=== PATIENT | female | born 1945 ===

== ENCOUNTER 2017-11-22 06:23 | Inpatient (IN) | payer OTHER ==
[2017-11-19 09:02] VITALS: BMI 35.2
[2017-11-22 06:59] LABS: BASO % 0.7 % (0.0-2.0); EOS # 0.1 K/uL (0.0-0.7); EOS % 3.7 % (0.0-4.0); HEMOGLOBIN 13.8 g/dL (12.0-16.0); LYMPH # 1.1 K/uL (1.0-4.3); LYMPH % 30.8 % (20.0-40.0); MEAN CELL VOLUME 92.7 fl (81.0-99.0); MEAN CORPUSCULAR HEMOGLOBIN 31.2 pg (27.0-31.0); MEAN CORPUSCULAR HGB CONC 33.7 g/dL (33.0-37.0); MEAN PLATELET VOLUME 7.3 fl (7.2-11.7); MONO # 0.5 K/uL (0.0-0.8); MONO % 13.8 % (0.0-10.0); NEUT # 1.9 K/uL (1.8-7.0); NRBC % 0.1 % (0.0-0.0); RBC 4.4 Mil/uL (3.80-5.20); RED CELL DISTRIBUTION WIDTH 14.3 % (11.5-14.5); WHITE BLOOD COUNT 3.7 K/uL (4.8-10.8)
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
[2017-11-22] MEDS ORDERED: Midazolam 2 MG/2 ML VIAL ONE (08:41)
[2017-11-22] MEDS ORDERED: Propofol 10 mg/ml Inj (20 ML) ONE (08:41)
[2017-11-22] MEDS ORDERED: Rocuronium 10 mg/ml (5 ml) ONE ×2 (08:41→11:51)
[2017-11-22] MEDS ORDERED: Succinylcholine 200 mg/10 ml Inj IV ONE (08:41)
[2017-11-22] MEDS ORDERED: Lidocaine 1% 5ml Abboject ONE (08:42)
[2017-11-22] MEDS ORDERED: Neostigmine 1:1000 (1 mg/ml) Inj ONE (08:42)
[2017-11-22] MEDS ORDERED: Lidocaine 4% (Laryng-O-Jet) Kit MM ONE (08:42)
[2017-11-22] MEDS ORDERED: Sevoflurane - Inhalation Anesthetic Liq (250 ml) ONE (08:48)
[2017-11-22] MEDS ORDERED: Bupivacaine HCl 0.5% PF (30 ml) Inj ONE (09:03)
[2017-11-22] MEDS ORDERED: Bupivacaine HCl 0.25% PF (30 ml) Inj ONE (09:03)
[2017-11-22 09:20] LABS: SQUAMOUS EPITHIAL < 1 /hpf (0-5); URINE BILIRUBIN NEGATIVE (NEGATIVE); URINE BLOOD NEGATIVE (NEGATIVE); URINE CLARITY CLEAR (Clear); URINE COLOR YELLOW (YELLOW); URINE GLUCOSE (UA) NEG (Normal); URINE LEUKOCYTE ESTERASE TRACE Leu/uL (Negative); URINE PROTEIN NEGATIVE (NEGATIVE); URINE UROBILINOGEN 0.2-1.0 mg/dL (0.2-1.0)
[2017-11-22] MEDS ORDERED: Fluticasone-Salmeterol 250-50mcg Diskus IH PRN ×2 (09:48→22:15)
[2017-11-22] MEDS ORDERED: Lactated Ringer's 1,000 ML IV ONE ×2 (11:10→13:54)
[2017-11-22] MEDS ORDERED: Bacitracin OINT 15GM TOP ONE (14:33)
--- NOTE | 2017-11-22 15:23 | PCM.SURG1 ---
Surgeon's Initial Post Op Note - Surgeon's Notes Surgeon: [facility] Registered Nurse: Erasto Galan PA-C/ FELI Patrick Type of Anesthesia: General Endo, Block Regional Anesthesia Administered By: DR Dang Pre-Operative Diagnosis: tricomparmental O/A R knee (primary) Operative Findings: tricompartmental O/A R knee. anterior and posterior synovitis. posterior capsular contracture. 'lateral patella contracture Post-Operative Diagnosis: as above Operation Performed: R TKR. posterior capsular release. lateral patella retinacular releasae. anterior and posterior synovectomy. computer navigation Specimen/Specimens Removed: synoviuim/cartilage bone Estimated Blood Loss: EBL {In ML}: 85 Blood Products Given: N/A Drains Used: No Drains, Hemovac Post-Op Condition: Fair Date of Surgery/Procedure: 11/22/17 Time of Surgery/Procedure: 12:30 (time in room/anesthesia indcution time 11:10)
--- NOTE | 2017-11-22 16:47 | RAD ---
Date of service: 11/22/2017 PROCEDURE: Right Knee Radiographs. HISTORY: s/p R TKA COMPARISON: None. FINDINGS: BONES: Satisfactory position alignment of components right TKA. JOINTS: Normal. No osteoarthritis. JOINT EFFUSION: None. OTHER FINDINGS: Surgical drains identified. IMPRESSION: Satisfactory postoperative status.
[2017-11-22] MEDS: Lactated Ringer's 1,000 ML IV SCH ×2 (17:34→18:16)
[2017-11-22] MEDS: Dextrose 5%/0.45% NS 1,000 ML IV SCH (17:47)
[2017-11-22] MEDS: Albuterol HFA 90 mcg/actuation (8 g) INH SCH (18:13)
[2017-11-22] MEDS: Omega-3-Acid Ethyl Esters 1 GM Cap PO SCH (18:14)
[2017-11-22] MEDS: Calcium-Vit D 500 mg-200 Units Tab UD PO SCH (18:14)
[2017-11-22] MEDS: Lubricant Eye Drops UD OU SCH (18:16)
[2017-11-22] MEDS: ceFAZolin 2 GM in Sodium Chloride 0.9% 100 ML IVPB SCH (18:16)
[2017-11-22] MEDS ORDERED: Benzocaine/Menthol (Cepacol) Lozenge PO PRN (20:30)
[2017-11-23] MEDS: ceFAZolin 2 GM in Sodium Chloride 0.9% 100 ML IVPB SCH (02:59)
[2017-11-23] MEDS: Lactated Ringer's 1,000 ML IV SCH ×2 (02:59→21:30)
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
[2017-11-23 06:54] LABS: HEMOGLOBIN 11.7 g/dL (12.0-16.0); MEAN CELL VOLUME 92.9 fl (81.0-99.0); MEAN CORPUSCULAR HEMOGLOBIN 31.7 pg (27.0-31.0); MEAN CORPUSCULAR HGB CONC 34.1 g/dL (33.0-37.0); RBC 3.69 Mil/uL (3.80-5.20); RED CELL DISTRIBUTION WIDTH 14.6 % (11.5-14.5); WHITE BLOOD COUNT 6.7 K/uL (4.8-10.8)
[2017-11-23 06:58] LABS: BLOOD UREA NITROGEN 17 mg/dl (7-17); CALCIUM 8.4 mg/dL (8.4-10.2); GFR NON-AFRICAN AMERICAN > 60
[2017-11-23] MEDS: Dextrose 5%/0.45% NS 1,000 ML IV SCH (07:13)
--- NOTE | 2017-11-23 08:46 | OP ---
PROCEDURE DATE: 11/22/2017 PREOPERATIVE DIAGNOSIS: Tricompartmental osteoarthritis of the right knee. POSTOPERATIVE DIAGNOSIS: Tricompartmental osteoarthritis of the right knee. PROCEDURES: 1. Right total knee replacement arthroplasty. 2. Posterior capsular release. 3. Anterior and posterior synovectomy. 4. Lateral patellar retinacular release. 5. Computer navigation. SURGEON: Sean Sanders MD OXYGEN THERAPIST: Frankie Galan PA-C SECOND JUICE BAR TEAM MEMBER: Sandrita Garces, Certified Registered Nursing Slot Supervisor. ANESTHESIA: General endotracheal anesthesia; regional anesthesia. ANESTHESIOLOGIST: Gasper Dang MD COMPLICATIONS: No complications. DRAINS: One Hemovac drain. COMPONENTS: #2 Medacta tibial component, #3 femoral component, 11 mm polyethylene, 32 mm patella. OPERATIVE INDICATIONS: Jocelyn King is a woman, well known to my practice, who presents with severe pain and restricted range of motion of the right knee. The patient has marked discomfort, pain on restricted range of motion. The patient has failed conservative management consisting of intraarticular injection, activity modification, and therapy. Pros, cons, risks, and benefits of the surgical approach were discussed; specifically knee replacement arthroplasty. The possibility of mechanical failure, infection, thromboembolic disease, possibility of secondary or tertiary surgery is discussed. The patient no longer withstand the discomfort and wishes the surgery to be accomplished. OPERATIVE PROCEDURE: After having obtained informed consent in the above fashion, after having identified the side, site, and procedure, and a critical pause/time-out, after the satisfactory induction of general and regional anesthetic, the patient identified as Jocelyn Ayala, in the supine position with all bony prominences well padded. The right lower extremity was prepped and free draped in usual fashion for lower extremity surgery. The tourniquet have been applied, but is not yet inflated. After sterilely prepping and draping, after having identified side, site, and procedure, and a critical pause/time-out, after the satisfactory induction of the anesthetic, the patient identified as Jocelyn King in the supine position with all bony prominences well padded. The right lower extremity was prepped and free draped in usual fashion for extremity surgery. The tourniquet have been applied, but is not yet inflated. After exsanguinating the limb, using a 6-inch Esmarch bandage, the tourniquet, which have been applied, was inflated to 350 mmHg. A 6-inch straight midline approach was made to the knee. The skin incision was carried down through the skin and subcutaneous tissue. Medial arthrotomy was accomplished. Patella was everted. The knee was flexed. Dissection was carried around posteromedially to the direct head of the semimembranosus tendon. A portion of the patellar ligament was elevated. Anterior and posterior cruciate ligaments were excised. Medial and lateral meniscectomies were accomplished. This having been accomplished, the initial osteotomy was accomplished on the tibial side. Computer navigation was employed at this point in time. An anterior synovectomy was accomplished to define the anterior aspect of the femur. This having been accomplished, the tibia was dislocated anteriorly and initial osteotomy was accomplished on the tibial side. Computer navigation commences. The anterior tibial strut for the KneeAlign devices was applied and this having been accomplished, the offset was registered. The accelerometer and sensor were placed. The offset is registered. Medial and lateral malleoli are registered, and varus-valgus cut is set to 0 degrees with 3 degrees of posterior slope. The osteotomy was accomplished 10 mm below the more intact side. This having been accomplished, the tibial osteotomy was accomplished. A portion of the iliotibial band insertion into lateral aspect of the tibial plateau was released. The tibia was prepared. Guidance rotation of the lateral aspect of the tibial condyle, mid malleolar axis, medial third of the tibial tuberosity. This having been accomplished, the patella was everted. Partial synovectomy was accomplished. Osteophytes were debrided and freehand patella osteotomy was accomplished after measuring the patella to 28 mm. At this point in time, attention was now turned to the femur. Notch osteophytes and border osteophytes were debrided. The guide pin was placed above the intercondylar notch. The distal femoral cutting guide was applied and affixed. The computer navigation was again accomplished with the accelerometer and sensor placed. The hip center was found. The cut was set to 0 degrees of varus-valgus on the mechanical axis and 0.5 degrees of flexion. This having been accomplished, the distal cut having been accomplished, the anterior-posterior sizing was then accomplished for a #3 femoral component. This supplied the distal aspect of the femur. Anterior and posterior osteotomies were accomplished as well as chamfer cuts. There was found to be posterior capsular contracture, the posterior capsule was released. Attention was now turned to the lateral patellar retinaculum. The lateral patellar retinaculum was released. The patella had been sized to a 32 mm and reamed appropriately. This having been accomplished, the reaming mill was fixed to the distal aspect of the femur. Reaming was accomplished. The wound was thoroughly irrigated. The #3 cemented femoral component was applied, #2 cemented tibial tray, 11 mm polyethylene, 32 mm patella posterior capsule having been released. Lateral patella having been released, anterior and posterior synovectomies having been accomplished, cementation having been accomplished, the tourniquet is deflated. Hemostasis was controlled using the Aquamantys. Closures in layers with interrupted Arthrex FiberWire and #1 Vicryl followed by 0 Vicryl, 2-0 Vicryl, and kassy for skin over an 8-inch suction Hemovac drain. Christ Duff compression dressing was applied. The patient was stable in recovery, satisfactory postoperative x-rays. The operation could not have been completed without the assistantship of Frankie Galan PA-C, and Sandrita Garces, Sinan Registered Nursing Slot Supervisor. Sean Sanders MD
[2017-11-23] MEDS: Albuterol HFA 90 mcg/actuation (8 g) INH SCH ×2 (09:05→16:52)
--- NOTE | 2017-11-23 09:06 | CP.PCM.PN ---
Subjective - Date & Time of Evaluation Date of Evaluation: 11/23/17 Time of Evaluation: 07:45 - Subjective Subjective: Patient seen and examined at bedside comfortable. Pain is 2/10 due to continuing effects of nerve block. No acute events overnight. Denies CP/SOB/N/V /D/fever. Objective - Vital Signs/Intake and Output Vital Signs (last 24 hours): Temp Pulse Resp BP Pulse Ox 99.2 F 91 H 20 107/61 96 11/23/17 08:00 11/23/17 08:00 11/23/17 08:00 11/23/17 08:00 11/23/17 08:00 - Medications Medications: Current Medications Acetaminophen (Tylenol 325mg Tab) 650 mg PO Q6 [facility] Last Admin: 11/23/17 04:29 Dose: 650 mg Albuterol (Ventolin Hfa 90 Mcg/Actuation (8 G)) 2 puff INH BID [facility] Last Admin: 11/22/17 18:13 Dose: 2 puff Artificial Tears (Refresh Opth Soln) 0.3 ml OU DAILY [facility] Last Admin: 11/22/17 18:16 Dose: 0.3 ml Benzocaine/Menthol (Cepacol Sore Throat) 1 ernesto PO Q2 PRN PRN Reason: Sore Throat Last Admin: 11/22/17 20:41 Dose: 1 ernesto Calcium/Vitamin D (Oyster Shell Calcium/Vitamin D 500 Mg-200 Iu) 1 tab PO BID [facility] Last Admin: 11/22/17 18:14 Dose: 1 tab Docusate Sodium (Colace) 100 mg PO BID [facility] Last Admin: 11/22/17 17:41 Dose: 100 mg Enoxaparin Sodium (Lovenox) 40 mg SC Q24H [facility] PRN Reason: Protocol Escitalopram Oxalate (Lexapro) 10 mg PO DAILY [facility] Home Med (Cyclosporine [Restasis]) 1 % BOTHEYES BID [facility] Hydromorphone HCl (Dilaudid) 0.5 mg IVP Q4 PRN PRN Reason: Pain, severe (8-10) Dextrose/Sodium Chloride (Dextrose 5%/0.45% Ns 1000 Ml) 1,000 mls @ 100 mls/hr IV .Q10H [facility] Stop: 11/23/17 09:54 Last Admin: 11/22/17 17:47 Dose: Not Given Lactated Ringer's (Lactated Ringer's) 1,000 mls @ 100 mls/hr IV .Q10H [facility] Last Admin: 11/23/17 02:59 Dose: 100 mls/hr Levofloxacin (Levaquin) 500 mg PO DAILY [facility] PRN Reason: Protocol Losartan Potassium (Cozaar) 25 mg PO DAILY [facility] Memantine (Namenda) 10 mg PO BID [facility] Last Admin: 11/22/17 18:14 Dose: 10 mg Montelukast Sodium (Singulair) 10 mg PO HS [facility] Last Admin: 11/22/17 21:32 Dose: 10 mg Kjaes-1-Apmj Ethyl Esters (Lovaza) 2 gm PO BID [facility] Last Admin: 11/22/17 18:14 Dose: 2 gm Oxycodone HCl (Oxycodone Immediate Release Tab) 5 mg PO Q4H PRN PRN Reason: Pain, moderate (4-7) Fluticasone/Salmeterol (Advair Diskus 250/50) 1 puff IH DAILY PRN PRN Reason: Shortness of Breath - Labs Labs: 11/23/17 05:35 11/23/17 05:35 - Extremities Exam Additional comments: R knee: Knee imm in place, Dressings CDI Hemovac in place with mod bloody drainage, 90cc overnight sensation slighlty diminished but intact SP/DP/TN motor intact EHL/FHL/TA/G pedal pulses intact comps soft NT B/L Assessment and Plan (1) Osteoarthritis of right knee Assessment & Plan: POD #1 s/p R TKA doing well -Maintain and monitor hemovac, possible removal tomorrow -Knee imm and CPM as per order -PT/OT FWB -complete postop abx -DVT ppx -discharge planning for possible discharge tomorrow -above d/w Dr. Sanders in agreement Status: Acute
[2017-11-23] MEDS: CYCLOSPORINE BOTHEYES SCH ×2 (10:03→16:49)
[2017-11-23] MEDS: levoFLOXacin 500 MG TAB PO SCH (10:06)
[2017-11-23] MEDS: Calcium-Vit D 500 mg-200 Units Tab UD PO SCH ×2 (10:06→16:50)
[2017-11-23] MEDS: Omega-3-Acid Ethyl Esters 1 GM Cap PO SCH ×2 (10:07→16:49)
[2017-11-23] MEDS: Lubricant Eye Drops UD OU SCH (10:09)
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
--- NOTE | 2017-11-23 12:17 | PCM.ANESB3 ---
Femoral Nerve Block - Femoral Nerve Block Date of Procedure: 11/22/17 Anesthesiologist: Dr. Dang Pre-Procedure Diagnosis: S/P right total knee replacement Post-Procedure Diagnosis: S/P right total knee replacement Procedure Performed: Femoral Nerve Block Right - Procedure Femoral Nerve Block: The procedure was explained to the patient that it is for the post-operative pain management. Consent was obtained after a thorough discussion with the patient regarding the benefits and possible complications of local anesthetic block of the femoral nerve at the inguinal crease area. The patient was brought to the operating room and standard monitors were applied. Time-out was held with the circulating nurse to confirm the correct surgery and the appropriate block. After applying oxygen by nasal cannula and administering general anesthesia, patient was placed in supine position with fully extended lower extremities and the right groin exposed. The femoral artery was then carefully palpated. The ultrasound transducer was then applied to this area in the transverse plane and the femoral nerve was visualized lateral to the femoral artery and underneath the fascia iliaca. After thorough identification, the inguinal crease area was prepped with Chlraprep solution. At this point, a #21 gauge Stimuplex 4-inch needle was inserted immediately lateral to the femoral artery pulse at the inguinal crease and advanced perpendicularly. The needle was inserted to the ultrasound transducer in-plane towards the femoral nerve in a [id number] direction. Needle advancement was performed carefully under direct ultrasound visualization. Nerve stimulator was used and twitch of the quadriceps muscle was obtained at current of 0.3MA. After negative aspiration, 5cc of 0.375% bupivacaine was injected and this was followed with 15cc of 0.375% bupivacaine. Under ultrasound guidance the local anesthetics were observed spreading below fascia iliaca and around the femoral nerve. The needle was removed intact and sterile dressing was applied. The patient had stable vital signs, was conscious and in no apparent distress. The patient tolerated the femoral nerve block well with stable vital signs and was prepared for subsequent surgery.
--- NOTE | 2017-11-23 12:20 | PCM.ANESB2 ---
Popliteal Nerve Block - Popliteal Nerve Block Date of Procedure: 11/22/17 Anesthesiologist: Dr. Dang Pre-Procedure Diagnosis: S/P right knee replacement Post-Procedure Diagnosis: S/P right knee replacement Procedure Performed: Popliteal Nerve Block Right - Procedure Popliteal Nerve Block: This procedure was explained to the patient that it is for post-operative pain management. Consent was obtained after a thorough discussion with the patient regarding the benefits and possible complications of local anesthetic block of the sciatic nerve at the popliteal level. The patient was brought to the operating room and standard monitors are applied. Time-out was held with the circulating nurse to confirm the correct surgery and the appropriate block. After applying oxygen by mask and administering genral anesthesia, patient's operative leg was gently raised and supported and the groove in between the biceps femoris and vastus lateralis muscles was carefully palpated. The skin approximately 8cm above the popliteal crease was then marked. The ultrasound transducer was then applied to the posterior thigh approximately 8cm above the popliteal crease in the transverse plane and the sciatic nerve before its division was visualized lateral to the popliteal artery and in between the bicep femoris and semimembranosus/semitendinosus muscles. After identification, the lateral portion of the thigh was prepped with Chloraprep solution. At this point, a # 21 gauge Stimuplex insulated 4 inch needle was inserted into pre-marked area and advanced in a perpendicular direction. The needle was inserted above the ultrasound transducer in-plane towards the sciatic nerve in a [id number] direction. Needle advancement was performed carefully under direct ultrasound visualization. Nerve stimulator was used and dorsiflexion of the right foot was elicited at a current of 0.3 MA. After repeated negative aspiration, 5cc of0.375% bupivacaine was injected and this was flowed with 15cc of 0.375% bupivacaine. Under ultrasound guidance the local anesthetics were observed surrounding sciatic nerve . The needle was removed intact and sterile dressing was applied. The patient tolerated the popliteal nerve block well with stable vital signs and was subsequently prepared for the surgery.
[2017-11-23] MEDS ORDERED: Ergocalciferol 50,000 Intl Units Cap PO SCH (16:00)
[2017-11-23 19:19] LABS: INR 1.2; PROTHROMBIN TIME 13.3 Seconds (9.8-13.1)
[2017-11-23] MEDS: oxyCODONE 5 mg Immediate Release Tab PO PRN (20:31)
[2017-11-23] MEDS: Enoxaparin 40 mg Syringe SC SCH (20:49)
[2017-11-24 06:34] LABS: HEMOGLOBIN 10.7 g/dL (12.0-16.0); MEAN CELL VOLUME 93.9 fl (81.0-99.0); MEAN CORPUSCULAR HEMOGLOBIN 32.3 pg (27.0-31.0); MEAN CORPUSCULAR HGB CONC 34.4 g/dL (33.0-37.0); RBC 3.33 Mil/uL (3.80-5.20); RED CELL DISTRIBUTION WIDTH 14.2 % (11.5-14.5); WHITE BLOOD COUNT 7.8 K/uL (4.8-10.8)
[2017-11-24 06:41] LABS: ALT/SGPT 27 U/L (9-52); AST/SGOT 39 U/L (14-36); BLOOD UREA NITROGEN 12 mg/dl (7-17); GFR NON-AFRICAN AMERICAN > 60
--- NOTE | 2017-11-24 08:33 | CP.PCM.PN ---
Subjective - Date & Time of Evaluation Date of Evaluation: 11/24/17 Time of Evaluation: 08:00 - Subjective Subjective: COMPLAINS OF RIGHT KNEE SURGICAL PAIN Objective - Vital Signs/Intake and Output Vital Signs (last 24 hours): Temp Pulse Resp BP Pulse Ox 98.4 F 86 19 106/69 94 L 11/24/17 08:07 11/24/17 08:07 11/24/17 08:07 11/24/17 08:07 11/24/17 08:07 Intake and Output: 11/24/17 11/24/17 06:59 18:59 Output Total 135 Balance -135 - Medications Medications: Current Medications Acetaminophen (Tylenol 325mg Tab) 650 mg PO Q6 [facility] Last Admin: 11/24/17 03:53 Dose: 650 mg Albuterol (Ventolin Hfa 90 Mcg/Actuation (8 G)) 2 puff INH BID [facility] Last Admin: 11/23/17 16:52 Dose: 2 puff Artificial Tears (Refresh Opth Soln) 0.3 ml OU DAILY [facility] Last Admin: 11/23/17 10:09 Dose: 0.3 ml Benzocaine/Menthol (Cepacol Sore Throat) 1 ernesto PO Q2 PRN PRN Reason: Sore Throat Last Admin: 11/22/17 20:41 Dose: 1 ernesto Calcium/Vitamin D (Oyster Shell Calcium/Vitamin D 500 Mg-200 Iu) 1 tab PO BID [facility] Last Admin: 11/23/17 16:50 Dose: 1 tab Docusate Sodium (Colace) 100 mg PO BID [facility] Last Admin: 11/23/17 10:07 Dose: 100 mg Enoxaparin Sodium (Lovenox) 40 mg SC Q24H [facility] PRN Reason: Protocol Last Admin: 11/23/17 20:49 Dose: 40 mg Ergocalciferol (Drisdol 50,000 Intl Units Cap) 1 cap PO Q7D [facility] Last Admin: 11/23/17 16:50 Dose: 1 cap Escitalopram Oxalate (Lexapro) 10 mg PO DAILY [facility] Last Admin: 11/23/17 10:07 Dose: 10 mg Home Med (Cyclosporine [Restasis]) 1 % BOTHEYES BID [facility] Last Admin: 11/23/17 16:49 Dose: 1 % Hydromorphone HCl (Dilaudid) 0.5 mg IVP Q4 PRN PRN Reason: Pain, severe (8-10) Lactated Ringer's (Lactated Ringer's) 1,000 mls @ 100 mls/hr IV .Q10H [facility] Last Admin: 11/23/17 21:30 Dose: Not Given Levofloxacin (Levaquin) 500 mg PO DAILY [facility] PRN Reason: Protocol Last Admin: 11/23/17 10:06 Dose: 500 mg Losartan Potassium (Cozaar) 25 mg PO DAILY [facility] Last Admin: 11/23/17 10:07 Dose: 25 mg Memantine (Namenda) 10 mg PO BID [facility] Last Admin: 11/23/17 10:07 Dose: 10 mg Montelukast Sodium (Singulair) 10 mg PO HS [facility] Last Admin: 11/23/17 21:17 Dose: 10 mg Fkpih-[id number] Ethyl Esters (Lovaza) 2 gm PO BID [facility] Last Admin: 11/23/17 16:49 Dose: 2 gm Oxycodone HCl (Oxycodone Immediate Release Tab) 5 mg PO Q4H PRN PRN Reason: Pain, moderate (4-7) Last Admin: 11/23/17 20:31 Dose: 5 mg Fluticasone/Salmeterol (Advair Diskus 250/50) 1 puff IH DAILY PRN PRN Reason: Shortness of Breath - Labs Labs: 11/24/17 05:38 11/24/17 05:38 PT 13.3 Seconds (9.8-13.1) H 11/23/17 19:03 INR 1.2 11/23/17 19:03 - Respiratory Exam Respiratory Exam: Clear to Ausculation Bilateral - Cardiovascular Exam Cardiovascular Exam: REGULAR RHYTHM, +S1, +S2 Assessment and Plan - Assessment and Plan (Free Text) Assessment: RIGHT TKR FOR SEVERE OA HYPERTENSION ASTHMA Plan: CONTINUE LOSARTAN, LOVENOX, ASTHMA MEDS AND PAIN MEDS FOR REHAB
[2017-11-24] MEDS: Omega-3-Acid Ethyl Esters 1 GM Cap PO SCH ×2 (10:25→17:52)
[2017-11-24] MEDS: CYCLOSPORINE BOTHEYES SCH ×2 (10:25→17:52)
[2017-11-24] MEDS: Albuterol HFA 90 mcg/actuation (8 g) INH SCH ×2 (10:34→18:23)
[2017-11-24] MEDS: Calcium-Vit D 500 mg-200 Units Tab UD PO SCH ×2 (10:36→17:52)
[2017-11-24] MEDS: levoFLOXacin 500 MG TAB PO SCH (10:36)
[2017-11-24] MEDS: Lubricant Eye Drops UD OU SCH (10:38)
--- NOTE | 2017-11-24 11:13 | CP.PCM.PN ---
Subjective - Date & Time of Evaluation Date of Evaluation: 11/24/17 Time of Evaluation: 08:30 - Subjective Subjective: Patient seen and examined at bedside. Pain is moderate following the nerve block wearing off. Tolerating PT well. No new complaints. Objective - Vital Signs/Intake and Output Vital Signs (last 24 hours): Temp Pulse Resp BP Pulse Ox 98.4 F 86 19 106/69 94 L 11/24/17 08:07 11/24/17 10:35 11/24/17 08:07 11/24/17 10:35 11/24/17 08:07 Intake and Output: 11/24/17 11/24/17 06:59 18:59 Output Total 135 Balance -135 - Medications Medications: Current Medications Acetaminophen (Tylenol 325mg Tab) 650 mg PO Q6 [facility] Last Admin: 11/24/17 10:24 Dose: 650 mg Albuterol (Ventolin Hfa 90 Mcg/Actuation (8 G)) 2 puff INH BID [facility] Last Admin: 11/24/17 10:34 Dose: 2 puff Artificial Tears (Refresh Opth Soln) 0.3 ml OU DAILY [facility] Last Admin: 11/24/17 10:38 Dose: Not Given Benzocaine/Menthol (Cepacol Sore Throat) 1 ernesto PO Q2 PRN PRN Reason: Sore Throat Last Admin: 11/22/17 20:41 Dose: 1 ernesto Calcium/Vitamin D (Oyster Shell Calcium/Vitamin D 500 Mg-200 Iu) 1 tab PO BID [facility] Last Admin: 11/24/17 10:36 Dose: 1 tab Docusate Sodium (Colace) 100 mg PO BID [facility] Last Admin: 11/24/17 10:27 Dose: 100 mg Enoxaparin Sodium (Lovenox) 40 mg SC Q24H [facility] PRN Reason: Protocol Last Admin: 11/23/17 20:49 Dose: 40 mg Ergocalciferol (Drisdol 50,000 Intl Units Cap) 1 cap PO Q7D [facility] Last Admin: 11/23/17 16:50 Dose: 1 cap Escitalopram Oxalate (Lexapro) 10 mg PO DAILY [facility] Last Admin: 11/24/17 10:27 Dose: 10 mg Home Med (Cyclosporine [Restasis]) 1 % BOTHEYES BID [facility] Last Admin: 11/24/17 10:25 Dose: 1 % Hydromorphone HCl (Dilaudid) 0.5 mg IVP Q4 PRN PRN Reason: Pain, severe (8-10) Last Admin: 11/24/17 10:19 Dose: 0.5 mg Lactated Ringer's (Lactated Ringer's) 1,000 mls @ 100 mls/hr IV .Q10H [facility] Last Admin: 11/23/17 21:30 Dose: Not Given Levofloxacin (Levaquin) 500 mg PO DAILY [facility] PRN Reason: Protocol Last Admin: 11/24/17 10:36 Dose: 500 mg Losartan Potassium (Cozaar) 25 mg PO DAILY [facility] Last Admin: 11/24/17 10:35 Dose: 25 mg Memantine (Namenda) 10 mg PO BID [facility] Last Admin: 11/24/17 10:26 Dose: 10 mg Montelukast Sodium (Singulair) 10 mg PO HS [facility] Last Admin: 11/23/17 21:17 Dose: 10 mg Monzj-9-Kgwh Ethyl Esters (Lovaza) 2 gm PO BID [facility] Last Admin: 11/24/17 10:25 Dose: 2 gm Oxycodone HCl (Oxycodone Immediate Release Tab) 5 mg PO Q4H PRN PRN Reason: Pain, moderate (4-7) Last Admin: 11/23/17 20:31 Dose: 5 mg Fluticasone/Salmeterol (Advair Diskus 250/50) 1 puff IH DAILY PRN PRN Reason: Shortness of Breath - Labs Labs: 11/24/17 05:38 11/24/17 05:38 PT 13.3 Seconds (9.8-13.1) H 11/23/17 19:03 INR 1.2 11/23/17 19:03 - Extremities Exam Additional comments: R knee: Knee imm in place, Dressings CDI, Dressings removed revealing wound CDI with kassy. Hemovac in place with mod bloody drainage, 55cc overnight sensation slighlty diminished but intact SP/DP/TN motor intact EHL/FHL/TA/G pedal pulses intact comps soft NT B/L Assessment and Plan (1) Osteoarthritis of right knee Assessment & Plan: POD #2 s/p R TKA doing well -Dressings changed -Maintain and monitor hemovac due to large output, possible removal tomorrow -Knee imm and CPM as per order -PT/OT FWB -DVT ppx -discharge planning for possible discharge tomorrow -above d/w Dr. Sanders in agreement Status: Acute
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
[2017-11-24] MEDS: Enoxaparin 40 mg Syringe SC SCH (18:24)
[2017-11-24] MEDS: oxyCODONE 10 mg ER Tab (oxyCONTIN) PO SCH (21:13)
[2017-11-25] MEDS: Lactated Ringer's 1,000 ML IV SCH (03:30)
[2017-11-25] MEDS: oxyCODONE 5 mg Immediate Release Tab PO PRN (06:28)
[2017-11-25 07:03] LABS: HEMOGLOBIN 10.4 g/dL (12.0-16.0); MEAN CELL VOLUME 93.8 fl (81.0-99.0); MEAN CORPUSCULAR HEMOGLOBIN 31.6 pg (27.0-31.0); MEAN CORPUSCULAR HGB CONC 33.8 g/dL (33.0-37.0); RBC 3.29 Mil/uL (3.80-5.20); RED CELL DISTRIBUTION WIDTH 14.1 % (11.5-14.5); WHITE BLOOD COUNT 7.9 K/uL (4.8-10.8)
[2017-11-25 07:22] LABS: BLOOD UREA NITROGEN 14 mg/dl (7-17); CALCIUM 9.4 mg/dL (8.4-10.2); GFR NON-AFRICAN AMERICAN > 60
[2017-11-25 07:57] VITALS: BP 128/63; RESP 19; TEMP 98; O2SAT 94
[2017-11-25] MEDS: Albuterol HFA 90 mcg/actuation (8 g) INH SCH (08:30)
[2017-11-25] MEDS: CYCLOSPORINE BOTHEYES SCH (08:31)
[2017-11-25] MEDS: Omega-3-Acid Ethyl Esters 1 GM Cap PO SCH (08:33)
[2017-11-25] MEDS: Calcium-Vit D 500 mg-200 Units Tab UD PO SCH (08:33)
[2017-11-25] MEDS: levoFLOXacin 500 MG TAB PO SCH (08:35)
[2017-11-25] MEDS: Lubricant Eye Drops UD OU SCH (08:37)
[2017-11-25] MEDS: oxyCODONE 10 mg ER Tab (oxyCONTIN) PO SCH (08:39)
[2017-11-25 08:40] VITALS: PULSE 71
--- NOTE | 2017-11-25 10:29 | CP.PCM.DIS ---
Provider - Provider Date of Admission: 11/22/17 11:55 Attending physician: Lorena Moreno MD Primary care physician: William Rao MD Time Spent in preparation of Discharge (in minutes): 20 Hospital Course - Lab Results Lab Results: Most Recent Lab Values WBC 7.9 K/uL (4.8-10.8) 11/25/17 06:10 RBC 3.29 Mil/uL (3.80-5.20) L 11/25/17 06:10 Hgb 10.4 g/dL (12.0-16.0) L 11/25/17 06:10 Hct 30.9 % (34.0-47.0) L 11/25/17 06:10 MCV 93.8 fl (81.0-99.0) 11/25/17 06:10 MCH 31.6 pg (27.0-31.0) H 11/25/17 06:10 MCHC 33.8 g/dL (33.0-37.0) 11/25/17 06:10 RDW 14.1 % (11.5-14.5) 11/25/17 06:10 Plt Count 208 K/uL (130-400) 11/25/17 06:10 MPV 7.3 fl (7.2-11.7) 11/22/17 06:30 Neut % (Auto) 51.0 % (50.0-75.0) 11/22/17 06:30 Lymph % (Auto) 30.8 % (20.0-40.0) 11/22/17 06:30 Moffat % (Auto) 13.8 % (0.0-10.0) H 11/22/17 06:30 Eos % (Auto) 3.7 % (0.0-4.0) 11/22/17 06:30 Baso % (Auto) 0.7 % (0.0-2.0) 11/22/17 06:30 Neut # (Auto) 1.9 K/uL (1.8-7.0) 11/22/17 06:30 Lymph # (Auto) 1.1 K/uL (1.0-4.3) 11/22/17 06:30 Moffat # (Auto) 0.5 K/uL (0.0-0.8) 11/22/17 06:30 Eos # (Auto) 0.1 K/uL (0.0-0.7) 11/22/17 06:30 Baso # (Auto) 0.0 K/uL (0.0-0.2) 11/22/17 06:30 PT 13.3 Seconds (9.8-13.1) H 11/23/17 19:03 INR 1.2 11/23/17 19:03 Sodium 137 mmol/l (132-148) 11/25/17 06:10 Potassium 4.1 MMOL/L (3.6-5.0) 11/25/17 06:10 Chloride 103 mmol/L (98-107) 11/25/17 06:10 Carbon Dioxide 29 mmol/L (22-30) 11/25/17 06:10 Anion Gap 9 (10-20) L 11/25/17 06:10 BUN 14 mg/dl (7-17) 11/25/17 06:10 Creatinine 0.9 mg/dl (0.7-1.2) 11/25/17 06:10 Est GFR ( Amer) > 60 11/25/17 06:10 Est GFR (Non-Af Amer) > 60 11/25/17 06:10 Random Glucose 101 mg/dL (65-105) 11/25/17 06:10 Calcium 9.4 mg/dL (8.4-10.2) 11/25/17 06:10 Total Bilirubin 0.9 mg/dl (0.2-1.3) 11/24/17 05:38 AST 39 U/L (14-36) H 11/24/17 05:38 ALT 27 U/L (9-52) 11/24/17 05:38 Alkaline Phosphatase 80 U/L (38-126) 11/24/17 05:38 Total Protein 6.1 G/DL (6.3-8.2) L 11/24/17 05:38 Albumin 3.0 g/dL (3.5-5.0) L 11/24/17 05:38 Globulin 3.1 gm/dL (2.2-3.9) 11/24/17 05:38 Albumin/Globulin Ratio 1.0 (1.0-2.1) 11/24/17 05:38 25-OH Vitamin D Total 22.2 NG/ML (30.0-100.0) L 11/23/17 05:35 Urine Color Yellow (YELLOW) 11/22/17 09:13 Urine Clarity Clear (Clear) 11/22/17 09:13 Urine pH 7.0 (5.0-8.0) 11/22/17 09:13 Ur Specific [place] 1.012 (1.003-1.030) 11/22/17 09:13 Urine Protein Negative mg/dL (NEGATIVE) 11/22/17 09:13 Urine Glucose (UA) Neg mg/dL (Normal) 11/22/17 09:13 Urine Ketones Negative mg/dL (NEGATIVE) 11/22/17 09:13 Urine Blood Negative (NEGATIVE) 11/22/17 09:13 Urine Nitrate Negative (NEGATIVE) 11/22/17 09:13 Urine Bilirubin Negative (NEGATIVE) 11/22/17 09:13 Urine Urobilinogen 0.2-1.0 mg/dL (0.2-1.0) 11/22/17 09:13 Ur Leukocyte Esterase Trace Zacarias/uL (Negative) 11/22/17 09:13 Urine RBC (Auto) 3 /hpf (0-3) 11/22/17 09:13 Urine Microscopic WBC 4 /hpf (0-5) 11/22/17 09:13 Ur Squamous Epith Cells < 1 /hpf (0-5) 11/22/17 09:13 Blood Type O POSITIVE 11/22/17 06:30 Blood Type Confirm O POSITIVE 11/22/17 09:30 Antibody Screen Negative 11/22/17 06:30 BBK History Checked No verified bt 11/22/17 06:30 - Hospital Course Hospital Course: Pt is a 72 yo female with PMH of Asthma, HTN, gastritis, depression, osteoporosis, zoster, glaucoma, Dementia and long history of arthritis admitted for right knee pain and elective right total Knee replacement. Pt surgery was performed on 22/11/17, There was no complication except for Mild anemia due to blood loss during surgery, Pt have bein treated with Ferrous sulfate, and CBC was monitored. Pt pain have improved, but still present. Hemovac was removed after Drainage was minimal. Pt was able to ambulate after surgery. Pt was able to pass urine, gas and stool with no difficulty, Pt denies any chest pain sob, dizziness, abd pain, diarrhea, constipation, dysuria or polyuria . Vitals were WNl. All chart and clinical data reviewed. Pt is comfortable to Go for Rehab. Pt also had UTI before admission and was on Levaquin, Abx was continued as prescribed, pt denies of any symptoms for now. Pt vitals are stable, LAbs are WNL, Anemia is bieng treated with ferrous sulfate , HTN with her home medication Pt is surgically and medically clear. Medicine team agree. Will discharge Pt to Rehab. PT concern were reviewed and addressed, Pt question were answered. Case Discussed with Dr Shrestha. Pt will be discharge to Rehab. Discharge Exam - Head Exam Head Exam: ATRAUMATIC, NORMAL INSPECTION, NORMOCEPHALIC - Eye Exam Eye Exam: EOMI, Normal appearance, PERRL Pupil Exam: NORMAL ACCOMODATION, PERRL - Respiratory Exam Respiratory Exam: Clear to PA & Lateral, NORMAL BREATHING PATTERN, UNREMARKABLE - Cardiovascular Exam Cardiovascular Exam: REGULAR RHYTHM, +S1, +S2 - GI/Abdominal Exam GI & Abdominal Exam: Normal Bowel Sounds, Unremarkable - Extremities Exam Additional comments: OTILIO wrap noted on RIGHT leg, Hemovac Removed. PEdal pulses present - Back Exam Back exam: NORMAL INSPECTION. absent: CVA tenderness (L), CVA tenderness (R) - Neurological Exam Neurological exam: Alert, CN II-XII Intact, Oriented x3 - Psychiatric Exam Psychiatric exam: Normal Affect, Normal Mood - Skin Skin Exam: Dry, Intact, Normal Color, Warm Discharge Plan - Follow Up Plan Condition: GOOD Disposition: REHAB FACILITY/REHAB UNIT Patient education suggested?: Yes Instructions: Osteoarthritis (DC), Total Knee Replacement (DC) Referrals: Sean Sanders III, MD [Staff Provider] - William Rao MD [Primary Care Provider] -
--- NOTE | 2017-11-25 11:10 | CP.PCM.PN ---
Subjective - Date & Time of Evaluation Date of Evaluation: 11/25/17 Time of Evaluation: 09:15 - Subjective Subjective: NO CHEST PAIN OR SOB ONLY PAIN IS RIGHT KNEE SURGICAL SITE PAIN Objective - Vital Signs/Intake and Output Vital Signs (last 24 hours): Temp Pulse Resp BP Pulse Ox 98.0 F 71 19 128/63 94 L 11/25/17 07:57 11/25/17 08:34 11/25/17 07:57 11/25/17 08:34 11/25/17 07:57 Intake and Output: 11/25/17 11/25/17 06:59 18:59 Output Total 40 Balance -40 - Medications Medications: Current Medications Acetaminophen (Tylenol 325mg Tab) 650 mg PO Q6 [facility] Last Admin: 11/25/17 03:10 Dose: Not Given Albuterol (Ventolin Hfa 90 Mcg/Actuation (8 G)) 2 puff INH BID [facility] Last Admin: 11/25/17 08:30 Dose: 1 puff Artificial Tears (Refresh Opth Soln) 0.3 ml OU DAILY [facility] Last Admin: 11/25/17 08:37 Dose: Not Given Benzocaine/Menthol (Cepacol Sore Throat) 1 ernesto PO Q2 PRN PRN Reason: Sore Throat Last Admin: 11/22/17 20:41 Dose: 1 ernesto Calcium/Vitamin D (Oyster Shell Calcium/Vitamin D 500 Mg-200 Iu) 1 tab PO BID [facility] Last Admin: 11/25/17 08:33 Dose: 1 tab Docusate Sodium (Colace) 100 mg PO BID [facility] Last Admin: 11/25/17 08:34 Dose: 100 mg Enoxaparin Sodium (Lovenox) 40 mg SC Q24H [facility] PRN Reason: Protocol Last Admin: 11/24/17 18:24 Dose: 40 mg Ergocalciferol (Drisdol 50,000 Intl Units Cap) 1 cap PO Q7D [facility] Last Admin: 11/23/17 16:50 Dose: 1 cap Escitalopram Oxalate (Lexapro) 10 mg PO DAILY [facility] Last Admin: 11/25/17 08:34 Dose: 10 mg Ferrous Sulfate (Feosol) 325 mg PO DAILY [facility] Last Admin: 11/25/17 08:33 Dose: 325 mg Home Med (Cyclosporine [Restasis]) 1 % BOTHEYES BID [facility] Last Admin: 11/25/17 08:31 Dose: 1 % Hydromorphone HCl (Dilaudid) 0.5 mg IVP Q4 PRN PRN Reason: Pain, severe (8-10) Last Admin: 11/24/17 18:20 Dose: 0.5 mg Lactated Ringer's (Lactated Ringer's) 1,000 mls @ 100 mls/hr IV .Q10H [facility] Last Admin: 11/25/17 03:30 Dose: Not Given Ketorolac Tromethamine (Toradol) 30 mg IVP Q6H [facility] Stop: 11/25/17 23:16 Levofloxacin (Levaquin) 500 mg PO DAILY [facility] PRN Reason: Protocol Last Admin: 11/25/17 08:35 Dose: 500 mg Losartan Potassium (Cozaar) 25 mg PO DAILY [facility] Last Admin: 11/25/17 08:34 Dose: 25 mg Memantine (Namenda) 10 mg PO BID [facility] Last Admin: 11/25/17 08:35 Dose: 10 mg Montelukast Sodium (Singulair) 10 mg PO HS [facility] Last Admin: 11/24/17 21:13 Dose: 10 mg Dxjlk-7-Irvb Ethyl Esters (Lovaza) 2 gm PO BID [facility] Last Admin: 11/25/17 08:33 Dose: 2 gm Oxycodone HCl (Oxycodone Immediate Release Tab) 5 mg PO Q4H PRN PRN Reason: Pain, moderate (4-7) Last Admin: 11/25/17 06:28 Dose: 5 mg Oxycodone HCl (Oxycontin Extended Release Tab) 10 mg PO Q12 [facility] Stop: 11/27/17 21:01 Last Admin: 11/25/17 08:39 Dose: 10 mg Fluticasone/Salmeterol (Advair Diskus 250/50) 1 puff IH DAILY PRN PRN Reason: Shortness of Breath - Labs Labs: 11/25/17 06:10 11/25/17 06:10 PT 13.3 Seconds (9.8-13.1) H 11/23/17 19:03 INR 1.2 11/23/17 19:03 - Respiratory Exam Respiratory Exam: Clear to Ausculation Bilateral - Cardiovascular Exam Cardiovascular Exam: REGULAR RHYTHM, +S1, +S2 Assessment and Plan - Assessment and Plan (Free Text) Assessment: RIGHT TKR FOR OA HYPERTENSION Plan: CONTINUE LOSARTAN AND LOVENOX FOR DISCHARGE TODAY TO REHAB FACILITY
--- NOTE | 2017-11-25 13:27 | CP.PCM.PN ---
Subjective - Date & Time of Evaluation Date of Evaluation: 11/25/17 Time of Evaluation: 13:27 - Subjective Subjective: Patient states she is still having a lot of pain in her right knee. She says it is no better than yesterday Objective - Vital Signs/Intake and Output Vital Signs (last 24 hours): Temp Pulse Resp BP Pulse Ox 98.0 F 71 19 128/63 94 L 11/25/17 07:57 11/25/17 08:34 11/25/17 07:57 11/25/17 08:34 11/25/17 07:57 Intake and Output: 11/25/17 11/25/17 06:59 18:59 Output Total 40 Balance -40 - Medications Medications: Current Medications Acetaminophen (Tylenol 325mg Tab) 650 mg PO Q6 [facility] Last Admin: 11/25/17 03:10 Dose: Not Given Albuterol (Ventolin Hfa 90 Mcg/Actuation (8 G)) 2 puff INH BID [facility] Last Admin: 11/25/17 08:30 Dose: 2 puff Artificial Tears (Refresh Opth Soln) 0.3 ml OU DAILY [facility] Last Admin: 11/25/17 08:37 Dose: Not Given Benzocaine/Menthol (Cepacol Sore Throat) 1 ernesto PO Q2 PRN PRN Reason: Sore Throat Last Admin: 11/22/17 20:41 Dose: 1 ernesto Calcium/Vitamin D (Oyster Shell Calcium/Vitamin D 500 Mg-200 Iu) 1 tab PO BID [facility] Last Admin: 11/25/17 08:33 Dose: 1 tab Docusate Sodium (Colace) 100 mg PO BID [facility] Last Admin: 11/25/17 08:34 Dose: 100 mg Enoxaparin Sodium (Lovenox) 40 mg SC Q24H [facility] PRN Reason: Protocol Last Admin: 11/24/17 18:24 Dose: 40 mg Ergocalciferol (Drisdol 50,000 Intl Units Cap) 1 cap PO Q7D [facility] Last Admin: 11/23/17 16:50 Dose: 1 cap Escitalopram Oxalate (Lexapro) 10 mg PO DAILY [facility] Last Admin: 11/25/17 08:34 Dose: 10 mg Ferrous Sulfate (Feosol) 325 mg PO DAILY [facility] Last Admin: 11/25/17 08:33 Dose: 325 mg Home Med (Cyclosporine [Restasis]) 1 % BOTHEYES BID [facility] Last Admin: 11/25/17 08:31 Dose: 1 % Hydromorphone HCl (Dilaudid) 0.5 mg IVP Q4 PRN PRN Reason: Pain, severe (8-10) Last Admin: 11/24/17 18:20 Dose: 0.5 mg Lactated Ringer's (Lactated Ringer's) 1,000 mls @ 100 mls/hr IV .Q10H [facility] Last Admin: 11/25/17 03:30 Dose: Not Given Ketorolac Tromethamine (Toradol) 30 mg IVP Q6H [facility] Stop: 11/25/17 23:16 Last Admin: 11/25/17 12:43 Dose: 30 mg Levofloxacin (Levaquin) 500 mg PO DAILY [facility] PRN Reason: Protocol Last Admin: 11/25/17 08:35 Dose: 500 mg Losartan Potassium (Cozaar) 25 mg PO DAILY [facility] Last Admin: 11/25/17 08:34 Dose: 25 mg Memantine (Namenda) 10 mg PO BID [facility] Last Admin: 11/25/17 08:35 Dose: 10 mg Montelukast Sodium (Singulair) 10 mg PO HS [facility] Last Admin: 11/24/17 21:13 Dose: 10 mg Xeltl-9-Wtvx Ethyl Esters (Lovaza) 2 gm PO BID [facility] Last Admin: 11/25/17 08:33 Dose: 2 gm Oxycodone HCl (Oxycodone Immediate Release Tab) 5 mg PO Q4H PRN PRN Reason: Pain, moderate (4-7) Last Admin: 11/25/17 06:28 Dose: 5 mg Oxycodone HCl (Oxycontin Extended Release Tab) 10 mg PO Q12 [facility] Stop: 11/27/17 21:01 Last Admin: 11/25/17 08:39 Dose: 10 mg Fluticasone/Salmeterol (Advair Diskus 250/50) 1 puff IH DAILY PRN PRN Reason: Shortness of Breath - Labs Labs: 11/25/17 06:10 11/25/17 06:10 PT 13.3 Seconds (9.8-13.1) H 11/23/17 19:03 INR 1.2 11/23/17 19:03 - Extremities Exam Additional comments: drain pulled. Incision intact, no erythema, dry. Dry dressing applied. +ROM ankle/toes, sensationintact calves soft NT neg homand +DP pulse, mirna applied Assessment and Plan (1) Osteoarthritis of right knee Assessment & Plan: POD# 3 s/p right TKR ortho stable for d/c knee immob at night, remove during day daily dressing changes PT/OT WBAT f/u approx [address] Shipman call for appt [phone] cont VTE proph d/w Dr. Sanders, agrees with above Status: Acute (2) Acute blood loss anemia Assessment & Plan: stable Status: Acute (3) Vitamin D deficiency Assessment & Plan: cont supp as out patient Status: Acute
== END 2017-11-25 13:20 | DRG 470 ==
LOC: H.OPSURG 06:23 → H.ERHOLD 11:55 → H.MEDSURG1 16:42
PROVIDERS: ADMIT Internal Medicine; ATTEND Internal Medicine
PROC: 8E0YXBZ Computer Assisted Procedure of Lower Extremity (ICD-10-PCS; 2017-11-22)
PROC: 3E0T3BZ Introduction of Anesthetic Agent into Peripheral Nerves and Plexi, Percutaneous Approach (ICD-10-PCS; 2017-11-22)
PROC: 3E0T3BZ Introduction of Anesthetic Agent into Peripheral Nerves and Plexi, Percutaneous Approach (ICD-10-PCS; 2017-11-22)
PROC: 0SRC0J9 Replacement of Right Knee Joint with Synthetic Substitute, Cemented, Open Approach (ICD-10-PCS; principal; 2017-11-22 14:45)
PROC: 0SBC0ZZ Excision of Right Knee Joint, Open Approach (ICD-10-PCS; 2017-11-22 14:45)
PROC: 0SNC0ZZ Release Right Knee Joint, Open Approach (ICD-10-PCS; 2017-11-22 14:45)
DX: M17.11 Unilateral primary osteoarthritis, right knee (principal); N39.0 Urinary tract infection, site not specified; D62 Acute posthemorrhagic anemia; H40.9 Unspecified glaucoma; F32.9 Major depressive disorder, single episode, unspecified; F03.90 Unspecified dementia, unspecified severity, without behavioral disturbance, psychotic disturbance, mood disturbance, and anxiety; M81.0 Age-related osteoporosis without current pathological fracture; J45.20 Mild intermittent asthma, uncomplicated; K29.70 Gastritis, unspecified, without bleeding; Z87.891 Personal history of nicotine dependence; Z91.040 Latex allergy status; E55.9 Vitamin D deficiency, unspecified; M65.9 Synovitis and tenosynovitis, unspecified; M24.561 Contracture, right knee; I10 Essential (primary) hypertension